=== PATIENT | male | born 1970 | race Caucasian/White ===

== ENCOUNTER 2024-07-18 01:29 | Emergency (ER) | payer BC, SELFPAY ==
--- NOTE | 2024-07-18 02:01 | EDNOTE_ITS ---
ED CPR RME/HPI General Chief Complaint: Cardiac Arrest/CPR Stated Complaint: CARDIAC ARREST Time Seen by Provider: 07/18/24 02:03 Source: family and EMS Arrival date/time: 07/18/24 01:29 Mode of arrival: EMS RME / HPI RME / HPI narrative: Dr. Hudson?[facility] Main ED Evaluation: 54-year-old male with a history of type 2 diabetes mellitus who was brought to the emergency department by EMS for a code blue at 01:28. Upon arrival, CPR was actively in progress. The patient was immediately transferred to room 3, where ED staff took over resuscitation efforts. The patient had been intubated in the field and had been shocked once, received seven rounds of epinephrine, in addition to amiodarone and narcan prior to arrival. According to the family, the patient was in his usual state of health earlier that day. They had just returned home from a family gathering, and the patient had reportedly engaged in sexual intercourse with his . During this time, he is suspected to have had a seizure, after which he became unresponsive. No prior complaints of chest pain, shortness of breath, or other concerning symptoms were reported earlier in the day. No fall or trauma. Despite the continued resuscitation efforts by ED staff, including advanced cardiac life support measures, the patient was pronounced at 02:00. Related Data Allergies Allergy/AdvReac Type Severity Reaction Status Date / Time NKA* Allergy Uncoded 02/24/10 09:25 Review of Systems Review of Systems ROS Unobtainable: other (unobtainable due to unresponsiveness) ED Exam Narrative Physical exam: GEN. APPEARANCE: Patient was in cardiac-respiratory arrest with CPR in progress. VITALS: Unobtainable. HEENT: Normocephalic, atraumatic. NECK: Supple, no JVD. CHEST: No deformity and no crepitus. ABDOMEN: Soft, flat. GENITALIA: Not examined. RECTAL EXAM: Not done. EXTREMITIES: Flaccid. No edema. SKIN: Cool and dry, no rashes noted. NEURO: GCS is 3. Course Quality Measures none Orders Category Date Time Status Sodium Bicarb 8.4% SYR Med 07/18/24 01:39 Discontinued 100 ml IV .STK-MED ONE Cardiac Arrest / CPR [facility] Narrative [facility] Narrative:: Scribe Attestation: I, Alan Rajput, am scribing for and in the presence of Dr. Hudson. Provider Notation: Although this document has been carefully reviewed, there may still be some phonetic and other typographical errors. These errors are purely grammatical due to imperfections in the software program and should not be construed in any way to compromise the substance of the patient's medical care during this visit. Patient data External records reviewed:: None Clinical information provided by:: EMS and family Social determinants that could affect healthcare access:: none Patient has the following chronic illnesses:: n/a How is presenting disease/condition affected by chronic disease/condition?: no chronic disease Evaluation data The following diagnostics were reviewed and interpreted by me:: other (specify) (patient ) Lab and/or radiology exams considered but not ordered:: n/a Interpretation Summary: n/a Medications / Prescriptions Medications or Prescriptions considered but not ordered:: n/a Medication administrations:: Medication Administration History Discontinued Medications Sodium Bicarbonate (Sodium Bicarb Inj 8.4% Syr 50 Ml Syringe) Confirm Administered Dose 100 ml IV .[employer] ONE Stop: 07/18/24 01:40 as above Consultations Consultation(s) initiated? (list below): No Diagnosis Cardiac arrest differential diagnosis: acute myocardial infarction, cardiac arrest and sudden cardiac Most likely diagnosis given after review of the tests above:: Cardiac arrest Admission Indicated Admission indicated?: not indicated Explain why admission is indicated or not indicated:: Patient Admission Request Was there a request for admission?: No Disposition Plan Disposition Plan: other (specify) () Critical Care Time Critical Care Time Critical Care Time: Yes Total Critical Care Time (min.): 31 Attestation: The high probability of sudden, clinically significant deterioration in the patient?s condition required the highest level of my preparedness to intervene urgently. ? The services I provided to this patient were to treat and/or prevent clinically significant deterioration. Services included the following: chart data review, reviewing nursing notes and/or old charts, documentation time, access consultant collaboration regarding findings and treatment options, medication orders and management, direct patient care, vital sign assessments and ordering, interpreting and reviewing diagnostic studies and lab tests. ? Aggregate critical care time includes only time during which I was engaged in work directly related to the patient?s care, as described above, whether at bedside or elsewhere in the Emergency Department. It did not include time spent performing other reported procedures or the services of residents, students, nurses or physician assistants. Discharge Plan Plan Patient Disposition: Problem List Clinical Impression: Cardiac arrest Patient/Caregiver Discharge Instructions Print Language: Kiswahili
--- NOTE | 2024-07-18 03:28 | PC.RT ---
Charge Nurse Humble called requesting I extubate the pt. I asked about whether the felt machine mechanic had seen the decedent and he said they would not be coming. I extubated the pt with nurse Kate at bedside.
== END 2024-07-18 04:40 | disposition expired ==
LOC: SERX 04:34
PROVIDERS: Emergency Provider Emergency Medicine; PCP Family Medicine
DX: I46.9 Cardiac arrest, cause unspecified (principal)
CPT/HCPCS: 92950; 99291